=== PATIENT | female | born 1970 | race Hispanic/Latino ===

== ENCOUNTER 2017-10-20 10:08 | Emergency (ER) | payer MEDICAID ==
[2017-10-20] MEDS ORDERED: TORADOL IM ONE (10:58)
--- NOTE | 2017-10-20 11:02 | Emergency Department Report ---
ED Back Pain/Injury HPI - General Chief Complaint: Back Pain/Injury Stated Complaint: BACK PAIN Time Seen by Provider: 10/20/17 10:48 Source: patient Limitations: Physical Limitation - History of Present Illness Initial Comments: Patient is a 47-year-old female who is wheelchair dependent who states she has chronic lower back pain and states that the ibuprofen is been taking is not helping at this time and was opened has something for pain here in the emergency department. Patient is new to a [facility] and is getting established there. Patient states she has nothing for pain at this time. Patient denies any bowel or bladder dysfunction except for some mild constipation. Patient denies fever or trauma. Patient states low back pain is 8 out of 10 in severity. - Related Data Previous Rx's Medication Instructions Recorded Last Taken Type Docusate Sodium [Colace] 100 mg PO BID PRN #30 capsule 10/20/17 Unknown Rx Ketorolac [Toradol] 10 mg PO Q6H PRN #14 tablet 10/20/17 Unknown Rx Allergies Allergy/AdvReac Type Severity Reaction Status Date / Time latex Allergy Rash Verified 10/20/17 10:18 Penicillins Allergy Swelling Verified 10/20/17 10:18 ED Review of Systems ROS: Stated complaint: BACK PAIN Other details as noted in HPI Comment: All other systems reviewed and negative ED Past Medical Hx - Past Medical History scolosis. DJD. brain aneurysm ED Back Pain Physical Exam - Exam General: Vital signs noted. No distress. Alert and acting appropriately. Back/Abdomen: Yes Perilumbar Tenderness, No Abdominal Tenderness, No Perithoracic Tenderness, No Sacroiliac Tenderness, No Flank Tenderness, No Straight Leg Raise Pain Neuro: Yes Normal Sensation, Yes Normal DTR's, Yes Normal Gait, No Motor Weakness ED Course Vital Signs 10/20/17 10:18 Temperature 98.2 F Pulse Rate 87 Respiratory 20 Rate Blood Pressure 113/60 O2 Sat by Pulse 98 Oximetry ED Medical Decision Making - Medical Decision Making Patient will be given a Toradol shot. Emergency department. Patient also given a prescription for Colace for constipation be discharged home. Critical care attestation.: If time is entered above; I have spent that time in minutes in the direct care of this critically ill patient, excluding procedure time. ED Disposition Clinical Impression: Chronic back pain Qualifiers: Back pain location: low back pain Back pain laterality: bilateral Sciatica presence: without sciatica Qualified Code(s): M54.5 - Low back pain; G89.29 - Other chronic pain Constipation Qualifiers: Constipation type: slow transit constipation Qualified Code(s): K59.01 - Slow transit constipation Disposition: TO HOME OR SELFCARE Is pt being admited?: No Does the pt Need Aspirin: No Condition: Stable Additional Instructions: Do not take the prescription of Toradol with [id number] NSAIDs Referrals: PRIMARY CARE, [Primary Care Provider] - 3-5 Days Time of Disposition: 11:02
[2017-10-20 11:24] VITALS: BP 116/71
== END 2017-10-20 11:22 | disposition home or self-care (01) ==
LOC: ED 10:08
DX: K59.09 Other constipation (principal); M54.5 Low back pain; G89.29 Other chronic pain; Z91.040 Latex allergy status; Z88.0 Allergy status to penicillin
CPT/HCPCS: 96372; 99283; J1885

== ENCOUNTER 2017-10-31 17:19 | Emergency (ER) | payer MEDICAID ==
--- NOTE | 2017-10-31 22:00 | Emergency Department Report ---
ED Female HPI - General Chief complaint: Urogenital-Female Stated complaint: GREEN VAGINAL DISCHARGE Time Seen by Provider: 10/31/17 21:52 Source: patient Mode of arrival: Wheelchair Limitations: No Limitations - History of Present Illness Initial comments: A 7-year-old female comes in reporting she is green vaginal discharge acting having unprotected sex with a stranger 2 weeks. Patient is not immature due to CVA. Patient reports that she lives in a shelter. She also reports has not taken a shower since October 18. She states that she has burning with urination. She reports that she's had a full hysterectomy. Patient denies any fever or chills no abdominal pain or pelvic pain. Patient brings to the hospital a dirty diaper with the discharge. Patient reports that she wears diapers for convenience that she does not like to sit on the toilet after other people. Patient has a past medical history of bipolar scoliosis and DJD and brain aneurysm and a CVA. MD Complaint: vaginal discharge, dysuria, possible STD -: week(s) (2) Are you Now?: No Associated Symptoms: vaginal discharge (hysterectomy), dysuria. denies: abdominal pain, nausea/vomiting - Related Data Sexually active: Yes (unprotected with strangers) Previous Rx's Medication Instructions Recorded Last Taken Type Docusate Sodium [Colace] 100 mg PO BID PRN #30 capsule 10/20/17 Unknown Rx Ketorolac [Toradol] 10 mg PO Q6H PRN #14 tablet 10/20/17 Unknown Rx Nitrofurantoin Monohyd/M-Cryst 100 mg PO BID #20 capsule 11/01/17 Unknown Rx [Macrobid 100 mg Capsule] Allergies Allergy/AdvReac Type Severity Reaction Status Date / Time latex Allergy Rash Verified 10/31/17 18:09 Penicillins Allergy Swelling Verified 10/31/17 18:09 ED Review of Systems ROS: Stated complaint: GREEN VAGINAL DISCHARGE Other details as noted in HPI Comment: All other systems reviewed and negative Constitutional: denies: chills, fever Gastrointestinal: denies: abdominal pain, nausea, vomiting, diarrhea, constipation Genitourinary: dysuria, discharge Musculoskeletal: denies: back pain ED Past Medical Hx - Past Medical History Hx Hypertension: Yes Hx CVA: Yes (left sided deficits) Hx Psychiatric Treatment: Yes (bipolar) Hx Asthma: Yes Additional medical history: scolosis. DJD. brain aneurysm - Surgical History Additional Surgical History: hysterectomy - Social History Smoking Status: Current Every Day Smoker Substance Use Type: None - Medications Home Medications: Home Medications Medication Instructions Recorded Confirmed Last Taken Type Docusate Sodium [Colace] 100 mg PO BID PRN #30 capsule 10/20/17 Unknown Rx Ketorolac [Toradol] 10 mg PO Q6H PRN #14 tablet 10/20/17 Unknown Rx Nitrofurantoin Monohyd/M-Cryst 100 mg PO BID #20 capsule 11/01/17 Unknown Rx [Macrobid 100 mg Capsule] ED Physical Exam - General Limitations: No Limitations General appearance: alert, in no apparent distress - Head Head exam: Present: atraumatic, normocephalic - Eye Eye exam: Present: normal appearance - ENT ENT exam: Present: mucous membranes moist - Neck Neck exam: Present: normal inspection, full ROM - Respiratory Respiratory exam: Present: normal lung sounds bilaterally. Absent: respiratory distress - Cardiovascular Cardiovascular Exam: Present: regular rate, normal rhythm. Absent: systolic murmur, diastolic murmur, rubs, gallop - GI/Abdominal GI/Abdominal exam: Present: soft, normal bowel sounds - Neurological Exam Neurological exam: Present: alert, oriented X3 - Psychiatric Psychiatric exam: Present: normal affect, normal mood - Skin Skin exam: Present: warm, dry, intact, normal color. Absent: rash ED Course Vital Signs 10/31/17 18:09 Temperature 97.9 F Pulse Rate 69 Respiratory 18 Rate Blood Pressure 131/37 O2 Sat by Pulse 98 Oximetry ED Medical Decision Making - Medical Decision Making Patient has been evaluated by this provider fast track. I will treat patient for STDs. Since patient has an allergy to penicillin as anaphylactic I will give patient gentamicin IV 320 mg per CDC guidelines. Patient also given azithromycin 1 g by mouth. Recommend patient to follow up with the health Department to have HIV testing hepatitis C syphilis. Discussed the patient that she needs to practice safe sex she is allergic to latex condoms out that it is latex free. Critical care attestation.: If time is entered above; I have spent that time in minutes in the direct care of this critically ill patient, excluding procedure time. ED Disposition Clinical Impression: STD (female) UTI (urinary tract infection) Qualifiers: Urinary tract infection type: site unspecified Hematuria presence: with hematuria Qualified Code(s): N39.0 - Urinary tract infection, site not specified ; R31.9 - Hematuria, unspecified Disposition: DC-01 TO HOME OR SELFCARE Is pt being admited?: No Does the pt Need Aspirin: No Condition: Stable Instructions: Safe Sex (ED), Sexually Transmitted Diseases (ED), Urinary Tract Infection in Women (ED) Additional Instructions: Please antibiotics as prescribed. Please use protection please avoid having intercourse for strangers. Please follow-up with the health department for further testing of STDs such as HIV, hepatitis, syphilis, herpes. Prescriptions: Nitrofurantoin Monohyd/M-Cryst [Macrobid 100 mg Capsule] 100 mg PO BID #20 capsule Referrals: PRIMARY CARE, [Primary Care Provider] - 3-5 Days
[2017-10-31 23:47] LABS: Bacteria,Urine 1+ /HPF (Negative); Bilirubin,Urine NEG (Negative); Blood,Urine MOD (Negative); Color,Urine Yellow (Yellow); Mucus,Urine FEW /HPF; Urobilinogen,Urine < 2.0 mg/dL (<2.0)
[2017-10-31 23:48] LABS: WBC,Urine > 182.0 /HPF (0.0-6.0)
[2017-11-01] MEDS ORDERED: GARAMYCIN IM ONE (00:12)
[2017-11-01] MEDS ORDERED: ZITHROMAX PO ONE (00:14)
[2017-11-01] MEDS ORDERED: GARAMYCIN IV ONE (00:30)
[2017-11-01] MEDS ORDERED: NACL 0.9% IV ONE (00:30)
[2017-11-01] MEDS ORDERED: ZITHROMAX ONE (02:11)
[2017-11-01 03:33] VITALS: BP 132/88
== END 2017-11-01 03:31 | disposition home or self-care (01) ==
LOC: ED 17:19
DX: N39.0 Urinary tract infection, site not specified (principal); Z20.2 Contact with and (suspected) exposure to infections with a predominantly sexual mode of transmission; I10 Essential (primary) hypertension; F17.200 Nicotine dependence, unspecified, uncomplicated; F31.9 Bipolar disorder, unspecified; Z86.73 Personal history of transient ischemic attack (TIA), and cerebral infarction without residual deficits; Z90.710 Acquired absence of both cervix and uterus; Z88.0 Allergy status to penicillin; Z91.040 Latex allergy status
CPT/HCPCS: 81001; 96365; 99283; J1580

== ENCOUNTER 2017-11-18 23:41 | Emergency (ER) | payer MEDICAID ==
--- NOTE | 2017-11-19 01:55 | Emergency Department Report ---
ED Psych HPI - General Chief Complaint: Psych Stated Complaint: JOSE EVELIZA Time Seen by Provider: 11/19/17 01:54 Source: patient Mode of arrival: Stretcher Limitations: No Limitations - History of Present Illness Initial Comments: Patient says she is suicidal and homicidal. She is also homeless. He has a history of bipolar disorder and schizophrenia. She is requesting to be transferred to mental health facility. MD Complaint: suicidal ideation, feels depressed -: Sudden Associated Psychiatric Symptoms: depression, suicidal ideation, homicidal ideation, auditory hallucinations History of same: Yes Quality: constant Improves With: none Worsens With: none Context: significant life stressor Associated Symptoms: denies other symptoms Treatments Prior to Arrival: none If Self Harm: admits thoughts of - Related Data Previous Rx's Medication Instructions Recorded Last Taken Type Docusate Sodium [Colace] 100 mg PO BID PRN #30 capsule 10/20/17 Unknown Rx Ketorolac [Toradol] 10 mg PO Q6H PRN #14 tablet 10/20/17 Unknown Rx Nitrofurantoin Monohyd/M-Cryst 100 mg PO BID #20 capsule 11/01/17 Unknown Rx [Macrobid 100 mg Capsule] Allergies Allergy/AdvReac Type Severity Reaction Status Date / Time latex Allergy Rash Verified 10/31/17 18:09 Penicillins Allergy Swelling Verified 10/31/17 18:09 ED Review of Systems ROS: Stated complaint: JOSE EVAL Other details as noted in HPI Comment: All other systems reviewed and negative Constitutional: denies: chills, fever Eyes: denies: eye pain ENT: denies: ear pain Respiratory: denies: cough, orthopnea, shortness of breath Cardiovascular: denies: chest pain, palpitations, dyspnea on exertion Endocrine: no symptoms reported Gastrointestinal: denies: abdominal pain, nausea, vomiting, diarrhea Genitourinary: denies: urgency, dysuria Musculoskeletal: denies: back pain, joint swelling Skin: denies: rash, lesions, change in color Neurological: denies: headache, weakness Psychiatric: depression, auditory hallucinations, homicidal thoughts, suicidal thoughts. denies: anxiety Hematological/Lymphatic: denies: easy bleeding ED Past Medical Hx - Past Medical History Hx Hypertension: Yes Hx CVA: Yes (left sided deficits) Hx Psychiatric Treatment: Yes (bipolar, Schizophrenia) Hx Asthma: Yes Additional medical history: scolosis. DJD. brain aneurysm - Surgical History Additional Surgical History: hysterectomy, tonsillectomy - Social History Smoking Status: Current Every Day Smoker Substance Use Type: Marijuana - Medications Home Medications: Home Medications Medication Instructions Recorded Confirmed Last Taken Type Docusate Sodium [Colace] 100 mg PO BID PRN #30 capsule 10/20/17 Unknown Rx Ketorolac [Toradol] 10 mg PO Q6H PRN #14 tablet 10/20/17 Unknown Rx Nitrofurantoin Monohyd/M-Cryst 100 mg PO BID #20 capsule 11/01/17 Unknown Rx [Macrobid 100 mg Capsule] ED Physical Exam - General Limitations: No Limitations General appearance: alert, in no apparent distress - Head Head exam: Present: atraumatic, normocephalic, normal inspection - Eye Eye exam: Present: normal appearance, PERRL, EOMI Pupils: Present: normal accommodation - ENT ENT exam: Present: normal exam, normal orophraynx, mucous membranes moist - Neck Neck exam: Present: normal inspection, full ROM. Absent: tenderness, meningismus - Respiratory Respiratory exam: Present: normal lung sounds bilaterally. Absent: respiratory distress, wheezes, rales, rhonchi, stridor - Cardiovascular Cardiovascular Exam: Present: regular rate, normal rhythm, normal heart sounds - GI/Abdominal GI/Abdominal exam: Present: soft, distended, normal bowel sounds. Absent: tenderness, guarding, rebound, rigid - Extremities Exam Extremities exam: Present: normal inspection, normal capillary refill - Back Exam Back exam: Present: normal inspection, full ROM - Neurological Exam Neurological exam: Present: alert, oriented X3, CN II-XII intact, other ( Residual Left sided paralysis from previous stroke.) - Psychiatric Psychiatric exam: Present: depressed, flat affect, homicidal ideation, suicidal ideation - Skin Skin exam: Present: warm, dry, intact, normal color. Absent: rash ED Course Vital Signs 11/19/17 11/19/17 11/19/17 00:16 00:59 02:00 Temperature 98.8 F 98.8 F Pulse Rate 83 85 Respiratory 18 16 16 Rate Blood Pressure 122/47 122/67 Blood Pressure [Right] O2 Sat by Pulse 96 98 98 Oximetry 11/19/17 11/19/17 09:00 09:19 Temperature 98.7 F Pulse Rate 61 Respiratory 18 18 Rate Blood Pressure Blood Pressure 159/85 [Right] O2 Sat by Pulse 98 99 Oximetry - Reevaluation(s) Reevaluation #1: 11/19/17 05:04 Patient is medically cleared for Psychiatric evaluation. ED Medical Decision Making - Lab Data Result diagrams: 11/19/17 Unknown 11/19/17 01:56 - Medical Decision Making Suicide Ideation. Homicide Ideation. H/o Bipolar and Schizophrenia. Critical care attestation.: If time is entered above; I have spent that time in minutes in the direct care of this critically ill patient, excluding procedure time. ED Disposition Clinical Impression: Suicide ideation, Homicidal ideation, History of bipolar disorder, History of schizophrenia, Marijuana abuse Disposition: DC/TX-65 PSY HOSP/PSY UNIT Is pt being admited?: No Does the pt Need Aspirin: No Condition: Stable Referrals: PRIMARY CARE, [Primary Care Provider] - 3-5 Days Time of Disposition: 05:05
[2017-11-19 02:32] LABS: Hemoglobin TNR gm/dl (10.1-14.3); Red Blood Count TNR M/mm3 (3.65-5.03)
[2017-11-19 02:33] LABS: Hematocrit TNR % (30.3-42.9); Mean Corpuscular HGB Conc TNR % (30-34); Mean Corpuscular Hemoglobin TNR pg (28-32); Mean Corpuscular Volume TNR fl (79-97); Platelet Count TNR K/mm3 (140-440); Red Cell Distribution Width TNR % (13.2-15.2)
[2017-11-19 02:34] LABS: Basophils % (Auto) TNR % (0.0-1.8); Eosinophils % (Auto) TNR % (0.0-4.3); Lymphocytes # (Auto) TNR K/mm3 (1.2-5.4); Lymphocytes % (Auto) TNR % (13.4-35.0); Monocytes # (Auto) TNR K/mm3 (0.0-0.8); Monocytes % (Auto) TNR % (0.0-7.3)
[2017-11-19 02:35] LABS: Basophils # (Auto) TNR K/mm3 (0.0-0.1); Eosinophils # (Auto) TNR K/mm3 (0.0-0.4)
[2017-11-19 03:14] LABS: BUN/Creatinine Ratio 21; Blood Urea Nitrogen 19 mg/dL (7-17); Calcium 8.8 mg/dL (8.4-10.2); Hemolysis Index 41
[2017-11-19 03:36] LABS: Basophils # (Auto) 0.1 K/mm3 (0.0-0.1); Basophils % (Auto) 0.6 % (0.0-1.8); Eosinophils # (Auto) 0.1 K/mm3 (0.0-0.4); Eosinophils % (Auto) 1.6 % (0.0-4.3); Hematocrit 37.2 % (30.3-42.9); Lymphocytes # (Auto) 3.5 K/mm3 (1.2-5.4); Mean Corpuscular HGB Conc 32 % (30-34); Mean Corpuscular Volume 77 fl (79-97); Monocytes # (Auto) 0.5 K/mm3 (0.0-0.8); Monocytes % (Auto) 5.2 % (0.0-7.3); Platelet Count 284 K/mm3 (140-440); Red Blood Count 4.83 M/mm3 (3.65-5.03)
[2017-11-19 03:48] LABS: Alanine Aminotransferase 13 units/L (7-56); Albumin 3.9 g/dL (3.9-5)
[2017-11-19 03:50] LABS: Mean Corpuscular Hemoglobin 25 pg (28-32); Red Cell Distribution Width 20.2 % (13.2-15.2)
[2017-11-19 03:59] LABS: Bilirubin,Direct < 0.2 mg/dL (0-0.2)
[2017-11-19 07:07] LABS: Bilirubin,Urine NEG (Negative); Blood,Urine NEG (Negative); Color,Urine Yellow (Yellow); Hyaline Casts,Urine 3 /LPF; Mucus,Urine FEW /HPF; Protein,Urine <15 mg/dL mg/dL (Negative); Urobilinogen,Urine < 2.0 mg/dL (<2.0); WBC,Urine < 1.0 /HPF (0.0-6.0)
[2017-11-19 07:11] LABS: Amphetamine Screen,Urine PRESUMPTIVE NEGATIVE; Benzodiazepines Screen,Urine PRESUMPTIVE NEGATIVE; Cocaine Screen,Urine PRESUMPTIVE NEGATIVE; Methadone Screen,Urine PRESUMPTIVE NEGATIVE; Opiate Screen,Urine PRESUMPTIVE NEGATIVE
[2017-11-19 07:25] LABS: Cannabinoid Screen,Urine PRESUMPTIVE POSITIVE
--- NOTE | 2017-11-19 14:05 | Consultation ---
History of Present Illness - Reason for Consult Consult date: 11/19/17 Reason for consult: Mental Health Evaluation Requesting physician: MARCIAL MOCTEZUMA - Chief Complaint Chief complaint: "I am okay" - History of Present Psychiatric Illness 47 y.o. white female presenting to the ER for SI/HI's. Today the patient is calm and cooperative during the assessment. She stated that she was having some disagreement at her detention and may gestured that she wanted to harm the staff. She stated that she was angry when she made "some sort of statement." She is adamant that she isn't homicidal or suicidal. She acknowledged that she do not have a psychiatrist, but her PCP manage her mental health. She stated that she has hx of Bipolar DO, anxiety and take Geodon and Vistaril. She denies SI/HI's and AVH's. She denies erratic sleep and a poor appetite. She denies recreational drug use but she is positive for marijuana. She denies alcohol consumption (etoh). Medications and Allergies Allergies Allergy/AdvReac Type Severity Reaction Status Date / Time latex Allergy Rash Verified 10/31/17 18:09 Penicillins Allergy Swelling Verified 10/31/17 18:09 Home Medications Medication Instructions Recorded Confirmed Last Taken Type Docusate Sodium [Colace] 100 mg PO BID PRN #30 capsule 10/20/17 Unknown Rx Ketorolac [Toradol] 10 mg PO Q6H PRN #14 tablet 10/20/17 Unknown Rx Nitrofurantoin Monohyd/M-Cryst 100 mg PO BID #20 capsule 11/01/17 Unknown Rx [Macrobid 100 mg Capsule] Past psychiatric history - Past Medical History Past Medical History: stroke (Left side weakness) Past Surgical History: No surgical history - past Psychiatric treatment and history psychiatric treatment history: Several inpatient psy settings. Denies a fam psy hx. - Social History Social history: other (Reside at a detention) Mental Status Exam - Vital signs Last Vital Signs Temp 98.7 F 11/19/17 09:00 Pulse 61 11/19/17 09:00 Resp 18 11/19/17 09:19 BP 159/85 11/19/17 09:00 Pulse Ox 99 11/19/17 09:19 - Exam Narrative exam: MSE: Appearance: calm, cooperative Behavior: regular eye contact Speech: regular rate and tone Mood: "okay" Affect: congruent to mood Thought Process: circumstantial Thought Content: denies SI/HI's and AVH's Motor Activity: lying in bed Cognition: alert Insight: poor Judgment: poor Results Result Diagrams: 11/19/17 Unknown 11/19/17 01:56 Abnormal lab results 11/19/17 11/19/17 11/19/17 Range/Units 01:56 01:56 01:56 MCV (79-97) fl MCH (28-32) pg RDW (13.2-15.2) % Lymph % (Auto) (13.4-35.0) % Sodium 136 L (137-145) mmol/L Carbon Dioxide 20 L (22-30) mmol/L BUN 19 H (7-17) mg/dL Glucose 153 H (65-100) mg/dL Salicylates < 0.3 L (2.8-20.0) mg/dL Acetaminophen < 5.0 L (10.0-30.0) ug/mL 11/19/17 Range/Units Unknown MCV 77 L (79-97) fl MCH 25 L (28-32) pg RDW 20.2 H (13.2-15.2) % Lymph % (Auto) 38.0 H (13.4-35.0) % Sodium (137-145) mmol/L Carbon Dioxide (22-30) mmol/L BUN (7-17) mg/dL Glucose (65-100) mg/dL Salicylates (2.8-20.0) mg/dL Acetaminophen (10.0-30.0) ug/mL All other labs normal. Assessment and Plan Assessment and plan: Impression: Unspecified Mood DO. Unspecified Anxiety DO. Cannabis Use DO. Today the patient is calm and cooperative during the assessment. DDx: Bipolar DO, R/O Substance Induced Mood DO Recommendation/Plan: Continue 1013 and reevaluate patient in 24 hours to determine proper dispo. Start Geodon 20 mg PO for mood and Vistaril 25 mg PO BID for anxiety. Discussed possible metabolic side effects of Geodon with patient.
[2017-11-19] MEDS: VISTARIL PO SCH ×2 (15:37→22:03)
[2017-11-19] MEDS: GEODON PO SCH (22:03)
[2017-11-20] MEDS: VISTARIL PO SCH ×2 (10:44→22:07)
--- NOTE | 2017-11-20 12:39 | Progress Note ---
Subjective - Reason for Consult Consult date: 11/20/17 Reason for consult: Psychiatry Follow-up - Chief Complaint Chief complaint: "I am well" 47 y.o. white female presenting to the ER for SI/HI's. Today the patient is calm and cooperative during the assessment. She is adamant that she was upset prior to coming to the ER for SI/HI's. She stated that it was a mistake to make a statement about hurting anyone or herself. She stated she can follow up with her PCP for outpatient psy services. She denies SI/HI's and AVH's. She denies any side effects of her medications. Mental Status Exam - Vital signs Last Vital Signs Temp 98.4 F 11/19/17 19:21 Pulse 83 11/19/17 19:21 Resp 16 11/19/17 19:21 BP 125/66 11/19/17 19:21 Pulse Ox 98 11/19/17 19:21 - Exam Narrative exam: MSE: Appearance: calm, cooperative Behavior: regular eye contact Speech: regular rate and tone Mood: "okay" Affect: congruent to mood Thought Process: linear Thought Content: denies SI/HI's and AVH's Motor Activity: lying in bed Cognition: A/O x 3 Insight: fair Judgment: fair Assessment and Plan Impression: Unspecified Mood DO. Unspecified Anxiety DO. Cannabis Use DO. Today the patient is calm and cooperative during the assessment. The patient is no threat to self or others. DDx: Bipolar DO, R/O Substance Induced Mood DO Recommendation/Plan: Rescind 1013. Continue Geodon 20 mg PO for mood and Vistaril 25 mg PO BID for anxiety. Discussed possible metabolic side effects of Geodon with patient. The patient can follow up with her PCP or [facility] for outpatient psy services.
--- NOTE | 2017-11-20 12:41 | Progress Note ---
Subjective - Reason for Consult Consult date: 11/20/17 Reason for consult: Psychiatry Follow-up - Chief Complaint Chief complaint: "I am well" Mental Status Exam - Vital signs Last Vital Signs Temp 98.4 F 11/19/17 19:21 Pulse 83 11/19/17 19:21 Resp 16 11/19/17 19:21 BP 125/66 11/19/17 19:21 Pulse Ox 98 11/19/17 19:21
[2017-11-20] MEDS: GEODON PO SCH (22:07)
[2017-11-21] MEDS: VISTARIL PO SCH ×2 (10:35→22:35)
[2017-11-21] MEDS ORDERED: TYLENOL ONE (14:14)
[2017-11-21] MEDS ORDERED: TYLENOL PO ONE (14:49)
[2017-11-21] MEDS: GEODON PO SCH (22:35)
[2017-11-22] MEDS: VISTARIL PO SCH (12:07)
[2017-11-22 16:44] VITALS: BP 102/58
== END 2017-11-22 17:25 ==
LOC: ED 23:41 → EEVIPCON 23:41 → ED 11-22 17:25
DX: F32.9 Major depressive disorder, single episode, unspecified (principal); R45.851 Suicidal ideations; R45.850 Homicidal ideations; F31.9 Bipolar disorder, unspecified; F20.9 Schizophrenia, unspecified; F12.10 Cannabis abuse, uncomplicated; I10 Essential (primary) hypertension; J45.909 Unspecified asthma, uncomplicated; F17.200 Nicotine dependence, unspecified, uncomplicated; M19.90 Unspecified osteoarthritis, unspecified site; Z86.73 Personal history of transient ischemic attack (TIA), and cerebral infarction without residual deficits; Z88.0 Allergy status to penicillin; Z91.040 Latex allergy status
CPT/HCPCS: 36415; 80048; 80074; 80307; 81001; 84703; 85025; 99284; G0480; 80320; Q0177